=== PATIENT | female | born 1995 | race African-American/Black ===

== ENCOUNTER 2017-04-20 16:28 | Day surgery (SDC) | payer BC, OTHER ==
[2017-04-20 17:07] VITALS: BMI 25.1
--- NOTE | 2017-04-20 22:00 | PRG ---
DATE OF ENCOUNTER: 04/20/2017 OB ER ENCOUNTER PRIMARY OB: Dr. Ricci Weldon. CHIEF COMPLAINT: Vaginal spotting. HISTORY OF PRESENT ILLNESS: The patient is a 21-year-old G1, P0 female with an intrauterine pregnan cy at 34 weeks' and 0 days, who presented today to labor and delivery after experiencing some spotti ng earlier this morning that has spontaneously resolved. Patient reports that she went to work and had shared her experience with her employer, who ultimately discharged her from work until she got c learance. The patient denies any contractions, any leakage of fluid, or vaginal bleeding. Patient denies any medical problems or complications with this . She denies urinary urgency or tomy quency. PAST MEDICAL HISTORY: Negative. PAST SURGICAL HISTORY: Negative. SOCIAL HISTORY: Denies drug, alcohol, or tobacco use. ALLERGIES: No known drug allergies. MEDICATIONS: vitamins. PHYSICAL EXAMINATION: VITAL SIGNS: Blood pressure 125/71, heart rate is 79, satting 99% on room air, temperature 98.9. GENERAL: She appears to be in no acute distress. She is alert and oriented, cooperative and pleasa nt to interact with. HEAD: Normocephalic, atraumatic. LUNGS: Clear to auscultation bilaterally. HEART: Regular rate and rhythm. ABDOMEN: Soft. EXTREMITIES: Nontender, nonedematous. PELVIC: She has had a cervical exam of 0 dilation, 25% effacement, and -3 station. OB LABS: Unavailable. REVIEW OF SYSTEMS: As per HPI. heart tracing performed for threatened labor. Baseline is noted in the 130s with mode rate long-term variability, positive accelerations, no decelerations, and no contractions visible pa tient is having severe debility, but not felt by the patient. ASSESSMENT AND PLAN: The patient is a 21-year-old G1, P0 female who had some spotting today that wa s isolated and reassurance has been given to the patient. Patient has a reactive NST, category 1 tr acing. The patient has been given reassurance and will be discharged to home with clearance to work.
== END 2017-04-20 18:20 | disposition home or self-care (01) ==
LOC: L&D/OP 16:28
PROVIDERS: ATTEND Family Medicine
DX: O26.853 Spotting complicating pregnancy, third trimester (principal); Z79.899 Other long term (current) drug therapy; Z3A.34 34 weeks gestation of pregnancy

== ENCOUNTER 2017-05-06 21:27 | Day surgery (SDC) | payer BC, OTHER ==
[2017-05-06 22:09] VITALS: BP 116/63; TEMP 98.8; BMI 24.7
[2017-05-06] MEDS ORDERED: Lactated Ringer's 2,000 ML IV SCH (23:30)
[2017-05-07 00:05] LABS: Bilirubin Negative (Negative); Blood, Urine Negative (Negative); Glucose, Urine (Dipstick) Negative (Negative); Ketone, Urine Negative (Negative); Nitrite Negative (Negative); Protein, Urine (Dipstick) Trace mg/dL (Neg-Trace); Urobilinogen 0.2 mg/dL (0.2-1.0)
[2017-05-07 00:09] LABS: Bacteria/HPF None Seen HPF (None Seen); Hyaline Casts/LPF 4-6 HYALINE CAST LPF (0-3 Hyaline); RBC/HPF 0-3 HPF (0-3); WBC/HPF 21-50 HPF (0-3)
[2017-05-07] MEDS ORDERED: Promethazine HCl 25 MG/ML VIAL IM PRN (01:02)
--- NOTE | 2017-05-07 02:10 | PRG ---
DATE OF SERVICE: 05/06/2017 PRIMARY OB: Ricci Weldon M.D. CHIEF COMPLAINT: Abdominal pains. HISTORY OF PRESENT ILLNESS: The patient is a 21-year-old G1, P0 female with an intrauterine pregnan cy at 36 weeks and 3 days who is presenting with abdominal pains and she reports that some contracti ons are stronger than others. She denies any leakage of fluid or any bleeding, any recent illness, fever, fall, headache, chest pain, shortness of breath. She does report she has had some diarrhea t crissy. PAST MEDICAL HISTORY: Negative. PAST SURGICAL HISTORY: Negative. SOCIAL HISTORY: Denies drug, alcohol or tobacco use. ALLERGIES: No known drug allergies. OBSTETRIC HISTORY: This is her first . OB LABS: Blood type is O positive, antibody screen is negative. RPR is nonreactive. In the first and third trimester, HIV is nonreactive. In the first and third trimester, hepatitis B surface anti gen is negative. She is rubella immune. Her one hour glucose is 124 and her GBS status is unknown at this time. REVIEW OF SYSTEMS: Per HPI. PHYSICAL EXAMINATION: VITAL SIGNS: Blood pressure is 116/63, heart rate of 80, respiratory rate of 18, temperature 98.8. GENERAL: She appears to be in no acute distress. She is alert and oriented, cooperative and pleasa nt to interact with. HEENT: Head is normocephalic, atraumatic. LUNGS: Clear to auscultation bilaterally. HEART: Regular rate and rhythm. ABDOMEN: Soft in between contractions and is firm with her contractions. EXTREMITIES: Nontender. CERVICAL: Cervical exam per nursing staff is 1, 75, and -1 station with the repeat exam 2-1/2 hours later at 1, 75, and 0 station. heart tracing for labor base line is noted to be in the 130s with moderate long-term v ariability, positive accelerations, no decelerations. Tocometer showing contractions about every 2- 5 minutes. Urinalysis was performed and was negative for bacteria and blood and protein, she did pichardo ve leukocyte esterase and some white blood cells and 4 to 6 squamous cells. ASSESSMENT AND PLAN: The patient is a 21-year-old G1, P0 female with an intrauterine at 3 6 weeks and 3 days who was having contractions and baby latently laboring. The patient has not made any significant cervical exchange consultant the last 2-1/2 hours and is being discharged to home w ith 12.5 mg of Phenergan and 2 mg of Stadol IM to help with her discomfort. The patient has been gi walt labor precautions and instructions to return with increasing pain, leaking of fluid, vag inal bleeding or decreased movement.
== END 2017-05-07 01:20 | disposition home or self-care (01) ==
LOC: L&D/OP 21:27
PROVIDERS: ATTEND Family Medicine
DX: O99.89 Other specified diseases and conditions complicating pregnancy, childbirth and the puerperium (principal); R10.9 Unspecified abdominal pain; O47.03 False labor before 37 completed weeks of gestation, third trimester; Z3A.36 36 weeks gestation of pregnancy; Z79.899 Other long term (current) drug therapy
CPT/HCPCS: 81003; 81015; 96360; 96361; 96372; J2550

== ENCOUNTER 2020-02-20 14:48 | Emergency (ER) | payer SELFPAY ==
--- NOTE | 2020-02-20 16:53 | ULT ---
Exam: Pelvic ultrasound HISTORY: Adnexal mass. Concern for TOA. Abdominal pain. COMPARISON: CT abdomen and pelvis on 02/20/2020 TECHNIQUE: Multiple grayscale and color Doppler images were obtained in a transabdominal and transvag inal pelvic ultrasound. Spectral analysis of the Doppler waveforms of the ovaries were performed. FINDINGS: CERVIX: Unremarkable UTERUS: Normal in size without focal abnormality. ENDOMETRIAL STRIPE: 9 mm which is within normal limits for a normal menstruating female patient. No f luid or fluid collection is seen in the endometrial canal. Minimal free fluid is present in the right adnexa. RIGHT OVARY: Right ovary is enlarged and contains a large complex cystic lesion with what appears to be fluid level. This likely represents a hemorrhagic cyst with air-fluid level secondary to sedimentation of hemorrhagic contents in the dependent portion of this structure. This complex cystic lesion measures 4.6 cm x 4.5 cm x 3.6 cm. Color flow evaluation does not demonstrate internal flow. Flow is present in the right ovary. LEFT OVARY: Normal flow, without focal mass. IMPRESSION: 1 Complex cystic lesion right ovary likely related to a hemorrhagic cyst with greatest dimension of 4 .6 cm. Follow-up pelvic ultrasound in 8-12 weeks is recommended. 2. Minimal amount of free fluid in the right adnexal region.
== END 2020-02-20 17:47 | disposition home or self-care (01) ==
LOC: ERS 14:48
DX: N83.201 Unspecified ovarian cyst, right side (principal)
CPT/HCPCS: 76856